=== PATIENT | female | born 1960 | race Caucasian/White ===

== ENCOUNTER 2018-07-01 07:32 | Day surgery (SDC) | payer OTHER ==
--- NOTE | 2018-07-01 10:24 | CP.SDSHP ---
Same Day Surgery H & P - History Proposed Procedure: EGD Pre-Op Diagnosis: SEE NOTES - Previous Medical/Surgical History Cardiac: Hypertension Endocrine/Metabolic: Thyroid Disease Misc: Other Pain: 4.Moderate Pain - Allergies Allergies: Allergies No Known Allergies Allergy (Verified 07/01/18 08:11) - Physical Exam General Appearance: N Vital Signs: Vital Signs 07/01/18 08:17 Temperature 98.9 F Pulse Rate 88 Respiratory 20 Rate Blood Pressure 157/80 H O2 Sat by Pulse 100 Oximetry Mental Status: Alert & Oriented x3 Neuro: WNL Heart: Other Lungs: WNL GI: WNL - {Optional Preform as Required} Breast: WNL Rectal: Other Integument: WNL : WNL ENT: WNL - Impression Pt. Evaluated Today:Candidate for Anesthesia & Procedure: Yes - Date & Time Time: 10:24 Short Stay Discharge - Short Stay Discharge Admitting Diagnosis/Reason for Visit: FUNCTIONAL DYSPEPSIA Disposition: HOME/ ROUTINE
[2018-07-01] MEDS ORDERED: Propofol 10 mg/ml Inj (20 ML) ONE (10:25)
[2018-07-01] MEDS ORDERED: Belladonna-Phenobarbital PO STA (10:35)
[2018-07-01 12:21] VITALS: BP 128/70; PULSE 76; RESP 16; TEMP 98.2; O2SAT 99
== END 2018-07-01 11:35 | disposition home or self-care (01) ==
LOC: C.ENDO 07:32
PROVIDERS: ATTEND Specialist
DX: K30 Functional dyspepsia (principal); K44.9 Diaphragmatic hernia without obstruction or gangrene; K29.40 Chronic atrophic gastritis without bleeding
CPT/HCPCS: 43239; 88305; J2704

== ENCOUNTER 2018-07-03 07:02 | Day surgery (SDC) | payer OTHER ==
[2018-07-03] MEDS ORDERED: Lactated Ringer's 1,000 ML IV ONE (09:08)
[2018-07-03] MEDS ORDERED: Propofol 10 mg/ml Inj (20 ML) ONE (09:10)
--- NOTE | 2018-07-03 09:11 | CP.SDSHP ---
Same Day Surgery H & P - History Proposed Procedure: COLONSCOPY Pre-Op Diagnosis: SEE NOTES - Previous Medical/Surgical History Cardiac: Hypertension Endocrine/Metabolic: Thyroid Disease - Allergies Allergies: Allergies No Known Allergies Allergy (Verified 07/03/18 07:21) - Physical Exam General Appearance: N Vital Signs: Vital Signs 07/03/18 07/03/18 07:30 07:41 Temperature 97.8 F Pulse Rate 87 87 Respiratory 20 Rate Blood Pressure 150/82 O2 Sat by Pulse 100 Oximetry Mental Status: Alert & Oriented x3 Neuro: WNL Heart: Other Lungs: WNL GI: WNL - {Optional Preform as Required} Breast: WNL Abdomen: Other Rectal: Other Integument: WNL : WNL Ortho: WNL ENT: WNL - Impression Pt. Evaluated Today:Candidate for Anesthesia & Procedure: Yes - Date & Time Time: :17 Short Stay Discharge - Short Stay Discharge Admitting Diagnosis/Reason for Visit: DIARRHEA, UNSPECIFIED Disposition: HOME/ ROUTINE
[2018-07-03] MEDS ORDERED: Belladonna-Phenobarbital PO ONE (09:50)
[2018-07-03] MEDS ORDERED: Pantoprazole 40 mg EC Tab PO ONE (10:00)
[2018-07-03] MEDS: Ciprofloxacin 400mg/200ml D5W 400 MG/200 ML BAG IVPB ONE (10:10)
[2018-07-03 10:16] VITALS: TEMP 97
[2018-07-03 10:24] VITALS: O2SAT 100
[2018-07-03 11:34] VITALS: BP 148/70; PULSE 69; RESP 15
== END 2018-07-03 11:20 | disposition home or self-care (01) ==
LOC: C.ENDO 07:02
PROVIDERS: ATTEND Specialist
DX: K58.0 Irritable bowel syndrome with diarrhea (principal); R10.84 Generalized abdominal pain; D50.9 Iron deficiency anemia, unspecified; R19.4 Change in bowel habit; K64.4 Residual hemorrhoidal skin tags; K64.8 Other hemorrhoids; I10 Essential (primary) hypertension
CPT/HCPCS: 45380; 84703; 88305; J0744; J2704; J7120